=== PATIENT | male | born 1965 | race Caucasian/White ===

== ENCOUNTER 2019-12-13 16:53 | Emergency (ER) | payer OTHER ==
[~2019-12-13] VITALS: Ht 175.3 cm; Wt 93.4 kg
[~2019-12-13 16:53] MED LIST: MONT10TA80 PO; TADA5TAB PO
--- NOTE | 2019-12-13 17:21 | PHYS DOC ---
Past History Past Medical History: Liver Disease, Other Additional Past Medical Histor: Bladder, (SCARLETT STERLING DO) Past Surgical History: Other Additional Past Surgical Histo: Ortho (SCARLETT STERLING DO) Alcohol Use: Occasionally (SCARLETT STERLING DO) General Adult EDM: Chief Complaint: ABDOMINAL PAIN HPI: HPI: 54-year-old male presents with right-sided abdominal pain. He has had intermittent pain for the last 2 to 3 days. The pain has been persistent today and he decided come the emergency room. He states that it is a deep throbbing with a burning sensation. He has not had pain like this before. Is never had abdominal surgery. He denies fever or chills. He has had no nausea, vomiting, diarrhea. He denies any trauma or falls. (SCARLETT STERLING DO) Review of Systems: Review of Systems: Constitutional: Denies fever or chills Eyes: Denies change in visual acuity HENT: Denies nasal congestion or sore throat Respiratory: Denies cough or shortness of breath Cardiovascular: Denies chest pain or edema GI: Right-sided abdominal pain. denies nausea, vomiting, bloody stools or diarrhea : Denies dysuria Musculoskeletal: Denies back pain or joint pain Integument: Denies rash Neurologic: Denies headache, focal weakness or sensory changes Endocrine: Denies polyuria or polydipsia Lymphatic: Denies swollen glands Psychiatric: Denies depression or anxiety (SCARLETT STERLING DO) Heart Score: Risk Factors: Risk Factors: DM, Current or recent (<one month) smoker, HTN, HLP, family history of CAD, obesity. Risk Scores: Score 0 - 3: 2.5% MACE over next 6 weeks - Discharge Home Score 4 - 6: 20.3% MACE over next 6 weeks - Admit for Clinical Observation Score 7 - 10: 72.7% MACE over next 6 weeks - Early Invasive Strategies (SCARLETT STERLING DO) Allergies: Allergies: Allergies Coded Allergies Type Severity Reaction Last Updated Verified almond Allergy Unknown 12/13/19 Yes (SCARLETT STERLING DO) Physical Exam: PE: Constitutional: Well developed, well nourished, no acute distress, non-toxic appearance. [] HENT: Normocephalic, atraumatic, bilateral external ears normal, oropharynx moist, no oral exudates, nose normal. [] Eyes: PERRLA, EOMI, conjunctiva normal, no discharge. [] Neck: Normal range of motion, no tenderness, supple, no stridor. [] Cardiovascular:Heart rate regular rhythm, no murmur [] Lungs & Thorax: Bilateral breath sounds clear to auscultation [] Abdomen: Bowel sounds normal, soft, right upper quadrant and right lower quadrant tenderness, no masses, no pulsatile masses. [] Skin: Warm, dry, no erythema, no rash. [] Back: No tenderness, no CVA tenderness. [] Extremities: No tenderness, no cyanosis, no clubbing, ROM intact, no edema. [] Neurologic: Alert and oriented X 3, normal motor function, normal sensory function, no focal deficits noted. [] Psychologic: Affect normal, judgement normal, mood normal. [] (SCARLETT STERLING DO) Current Patient Data: Vital Signs: Vital Signs Date Time Temp Pulse Resp B/P (MAP) Pulse Ox O2 Delivery O2 Flow Rate FiO2 12/13/19 17:14 98.0 62 16 134/90 (105) 95 Room Air (SCARLETT STERLING DO) EKG: EKG: [] (SCARLETT STERLING DO) Radiology/Procedures: Radiology/Procedures: [] (SCARLETT STERLING DO) Radiology/Procedures: [place] [address] IMAGING REPORT Signed PATIENT: AISSATOU THORNE ACCOUNT: [id number] : 1965 LOCATION: ER AGE: 54 SEX: M EXAM STATUS: REG ER ORD. PHYSICIAN: SCARLETT STERLING DO REASON: right sided abdominal pain PROCEDURE: CT ABD PELV W/ IV CONTRST ONLY CT abdomen and pelvis with contrast History: Right-sided abdominal pain Technique: After the administration of intravenous contrast, CT imaging was performed of the abdomen and pelvis. No oral contrast was given. Multiplanar images are reviewed. Exposure: One or more of the following individualized dose reduction techniques were utilized for this examination: 1. Automated exposure control 2. Adjustment of the mA and/or kV according to patient size 3. Use of iterative reconstruction technique. Comparison: September 03, 2015 Findings: There is no significant abnormality of the visualized lung bases. There is no significant focal abnormality of the liver, spleen, pancreas, adrenal glands. There is hepatic steatosis. A small accessory spleen. Both kidneys enhance without hydronephrosis. Gallbladder is present, apparently a small gallstone present. Accurate evaluation of bowel is limited without oral contrast. The bowel is not significantly dilated. No free fluid or free air is identified. There is probable visualization of small caliber appendix, no significant pericecal inflammatory change. Urinary bladder is somewhat distended. There is again minimal fat in the left inguinal canal, no bowel. There is vacuum disc disease at L5-S1. There is [id number] narrowing of the left L5-S1 neural foramen by facet and disc osteophyte complex. There is fairly severe osteoarthritic change of the right hip, to lesser degree on the left. Impression: 1. No significant inflammatory type change is identified. Small caliber appendix is believed to be visualized. 2. There is hepatic steatosis. 3. There is cholelithiasis. 4. Urinary bladder is somewhat distended. 5. There is osteoarthritic change of the hips greater on the right. Electronically signed by: Tamika Mayorga MD (12/13/2019 5:55 PM) [facility] DICTATED AND SIGNED BY: TAMIKA MAYORGA MD DATE: 12/13/19 0022 CC: SCARLETT STERLING DO; MICHELLE HALL ~ (JAILYN TEMPLETON MD) Course & Med Decision Making: Course & Med Decision Making Pertinent Labs and Imaging studies reviewed. (See chart for details) The patient's work-up is pending. I am signing the patient out to Dr. Templeton at 1800. [] (SCARLETT STERLING DO) Course & Med Decision Making Pt. to stay on clear fluid diet only x 48 hrs. No solids or milk products. Allow bowel rest. Re- exam if no improvement. Follow up at [place]. No finding consistent for acute surgical pathology at this. May have findings of colitis or infectious induced colitis since recent trip to [facility]. Daughter was on same trip but she is not sick. Impression: 1. Abdomen Pain - Rt. lower 2. Gall stones 3. Mild elevation of AST 63/Alt 94 4. Pt. Hx BPH- on Flomax (JAILYN TEMPLETON MD) Dragon Disclaimer: Dragon Disclaimer: This electronic medical record was generated, in whole or in part, using a voice recognition dictation system. (SCARLETT STERLING DO) Departure Departure: Disposition: 01 DC HOME SELF CARE/HOMELESS Condition: STABLE Referrals: MICHELLE HALL (PCP) Scripts Hydrocodone/Ibuprofen (HYDROCODONE-IBUPROFEN 7.5-200 ) 1 Each Tablet 1 TAB PO PRN Q6HRS PRN for PAIN, #30 TAB 0 Refills Prov: JAILYN TEMPLETON MD 12/13/19 Dragon Disclaimer This chart was dictated in whole or in part using Voice Recognition software in a busy, high-work load, and often noisy Emergency Department environment. It may contain unintended and wholly unrecognized errors or omissions. (JAILYN TEMPLETON MD) Dragon Disclaimer This chart was dictated in whole or in part using Voice Recognition software in a busy, high-work load, and often noisy Emergency Department environment. It may contain unintended and wholly unrecognized errors or omissions. (JAILYN TEMPLETON MD) SCARLETT STERLING DO Dec 13, 2019 17:20 JAILYN TEMPLETON MD Dec 13, 2019 21:03
[2019-12-13] MEDS ORDERED: IOHEXOL 300 MG/ML 75 ML VIAL. IV ONE (17:30)
[2019-12-13 17:52] LABS: BASO # 0.1 x10^3/uL (0.0-0.2); BASO % 1 % (0-3); EOS # 0.2 x10^3/uL (0.0-0.7); EOS % 4 % (0-3); HEMATOCRIT 46.3 % (39.0-53.0); HEMOGLOBIN 15.3 g/dL (13.0-17.5); LYMPH # 1.8 x10^3/uL (1.0-4.8); LYMPH % 26 % (24-48); MEAN CORPUSCULAR HEMOGLOBIN 32 pg (25-35); MEAN CORPUSCULAR HGB CONC 33 g/dL (31-37); MEAN CORPUSCULAR VOLUME 97 fL (79-100); MONO # 0.8 x10^3/uL (0.0-1.1); MONO % 11 % (0-9); NEUT # 4.1 x10^3uL (1.8-7.7); NEUT % 58 % (31-73); PLATELET COUNT 191 x10^3/uL (140-400); RED BLOOD COUNT 4.75 x10^6/uL (4.30-5.70); RED CELL DISTRIBUTION WIDTH 12.6 % (11.5-14.5); WHITE BLOOD COUNT 7.1 x10^3/uL (4.0-11.0)
--- NOTE | 2019-12-13 17:58 | RAD ---
CT abdomen and pelvis with contrast History: Right-sided abdominal pain Technique: After the administration of intravenous contrast, CT imaging was performed of the abdomen and pelvis. No oral contrast was given. Multiplanar images are reviewed. Exposure: One or more of the following individualized dose reduction techniques were utilized for this examination: 1. Automated exposure control 2. Adjustment of the mA and/or kV according to patient size 3. Use of iterative reconstruction technique. Comparison: September 03, 2015 Findings: There is no significant abnormality of the visualized lung bases. There is no significant focal abnormality of the liver, spleen, pancreas, adrenal glands. There is hepatic steatosis. A small accessory spleen. Both kidneys enhance without hydronephrosis. Gallbladder is present, apparently a small gallstone present. Accurate evaluation of bowel is limited without oral contrast. The bowel is not significantly dilated. No free fluid or free air is identified. There is probable visualization of small caliber appendix, no significant pericecal inflammatory change. Urinary bladder is somewhat distended. There is again minimal fat in the left inguinal canal, no bowel. There is vacuum disc disease at L5-S1. There is [id number] narrowing of the left L5-S1 neural foramen by facet and disc osteophyte complex. There is fairly severe osteoarthritic change of the right hip, to lesser degree on the left. Impression: 1. No significant inflammatory type change is identified. Small caliber appendix is believed to be visualized. 2. There is hepatic steatosis. 3. There is cholelithiasis. 4. Urinary bladder is somewhat distended. 5. There is osteoarthritic change of the hips greater on the right. Electronically signed by: Henrique Rivera MD (12/13/2019 5:55 PM) [facility]
[2019-12-13 18:01] LABS: CALCIUM 9.1 mg/dL (8.5-10.1); CREATININE 0.9 mg/dL (0.7-1.3); GFR 87.3; POTASSIUM 3.9 mmol/L (3.5-5.1)
[2019-12-13 18:08] LABS: ALBUMIN/GLOBULIN RATIO 1.2 (1.0-1.7); TOTAL BILIRUBIN 0.6 mg/dL (0.2-1.0); TOTAL PROTEIN 7.4 g/dL (6.4-8.2)
[2019-12-13 18:18] LABS: BILIRUBIN,URINE NEG (NEG); CLARITY,URINE CLEAR; COLOR,URINE STRAW; GLUCOSE,URINE NEG (NEG)
[2019-12-13 18:19] LABS: BACTERIA,URINE 0 /HPF (0-FEW); NITRITE,URINE NEG (NEG); RBC,URINE 0 /HPF (0-2); UROBILINOGEN,URINE 0.2 mg/dL (0.2 mg/dL); WBC,URINE 0 /HPF (0-4)
[2019-12-13] MEDS ORDERED: MORPHINE SULFATE 10 MG/ML SYRINGE. SQ ONE (19:30)
[2019-12-13 21:08] VITALS: BP 132/56
[2019-12-13] MEDS ORDERED: HYDR-1179 PO (21:17)
== END 2019-12-13 21:16 | disposition home or self-care (01) ==
LOC: ER 16:53
DX: K80.20 Calculus of gallbladder without cholecystitis without obstruction (principal); R79.89 Other specified abnormal findings of blood chemistry; N40.0 Benign prostatic hyperplasia without lower urinary tract symptoms; Z91.018 Allergy to other foods
CPT/HCPCS: 36415; 74177; 80053; 81001; 83690; 85025; 96372; 99285; J2270; Q9967